=== PATIENT | female | born 1995 | race Caucasian/White ===

== ENCOUNTER 2019-04-05 23:50 | Outpatient (CLI) | payer MEDICAID | END 2019-04-06 09:20 | disposition home or self-care (01) | LOC: D.LDO 23:50 → D.LD 23:50 → D.LDO 04-06 09:20 | PROVIDERS: ATTEND Obstetrics & Gynecology | DX: O26.893 Other specified pregnancy related conditions, third trimester (principal); M06.9 Rheumatoid arthritis, unspecified; Z3A.29 29 weeks gestation of pregnancy ==

== ENCOUNTER → 2019-04-21 08:41 | Outpatient (CLI) | payer MEDICAID ==
[2019-04-21 13:59] LABS: APPEARANCE CLEAR (CLEAR); BILIRUBIN NEGATIVE (NEGATIVE); COLOR YELLOW (YELLOW); GLUCOSE NEGATIVE (NEGATIVE); KETONE NEGATIVE (NEGATIVE); NITRITE NEGATIVE (NEGATIVE); PROTEIN TRACE mg/dL (NEGATIVE); SPECIFIC GRAVITY 1.005 (1.005-1.020); UROBILINOGEN NORMAL (NORMAL)
[2019-04-21 14:00] LABS: BACTERIA FEW /hpf (NEGATIVE); EPITHELIAL CELLS 0-5 /hpf (0-5)
== END | disposition home or self-care (01) ==
LOC: D.LDO 08:41
PROVIDERS: Student in an Organized Health Care Education/Training Program; ATTEND Obstetrics & Gynecology
DX: O35.9XX0 Maternal care for (suspected) fetal abnormality and damage, unspecified, not applicable or unspecified (principal)

== ENCOUNTER 2019-05-23 17:15 | Outpatient (CLI) | payer MEDICAID | END 2019-05-23 18:05 | disposition home or self-care (01) | LOC: D.LDO 17:15 | PROVIDERS: ATTEND Student in an Organized Health Care Education/Training Program | DX: O24.419 Gestational diabetes mellitus in pregnancy, unspecified control (principal); Z3A.36 36 weeks gestation of pregnancy ==

== ENCOUNTER 2019-05-24 17:14 | Inpatient (IN) | payer MEDICAID ==
[~2019-05-24] VITALS: Ht 165.1 cm; Wt 79.1 kg
[2019-05-24 18:54] LABS: NITRITE NEGATIVE (NEGATIVE)
[2019-05-24 18:55] LABS: BILIRUBIN NEGATIVE (NEGATIVE); GLUCOSE NEGATIVE (NEGATIVE); KETONE NEGATIVE (NEGATIVE); UROBILINOGEN NORMAL (NORMAL)
[2019-05-24 19:00] LABS: UDS - AMPHET NEGATIVE QUAL (NEGATIVE); UDS - BARB NEGATIVE QUAL (NEGATIVE); UDS - BENZO NEGATIVE QUAL (NEGATIVE); UDS - COCAINE NEGATIVE QUAL (NEGATIVE); UDS - OPIATE NEGATIVE QUAL (NEGATIVE); UDS - PCP NEGATIVE QUAL (NEGATIVE); UDS - THC NEGATIVE QUAL (NEGATIVE)
[2019-05-24 19:06] LABS: RED CELLS - URINE OCC /hpf (0-5); WHITE CELLS - URINE 0-5 /hpf (NEGATIVE)
[2019-05-24 19:09] LABS: EPITHELIAL CELLS OCC /hpf (0-5)
[2019-05-24 20:51] LABS: HEMATOCRIT 32.9 % (36.0-48.0); MCH 25.7 pg (26.0-34.0); MCHC 33.4 g/dL (31.0-37.0); MCV 76.9 fL (80.0-100.0); RBC 4.28 10x6/uL (4.00-5.40); RDW 14.6 % (11.5-14.5); WBC 10.7 10x3/uL (4.8-10.8)
[2019-05-24 21:11] LABS: CALC OSMOLALITY 270 mosm/kg (275-300); CARBON DIOXIDE 20.8 mmol/L (21.0-32.0); CHLORIDE - SERUM 106 mmol/L (98-107); CREATININE - SERUM 0.8 mg/dL (0.6-1.3); GLUCOSE 88 mg/dL (74-106); SODIUM 137 mmol/L (136-145); UREA NITROGEN 7 mg/dL (7-18); eGFR NON AFRICAN AMERICAN > 90 mL/min (90-120)
[2019-05-24 21:17] LABS: ALBUMIN 2.3 g/dL (3.4-5.0); ALKALINE PHOSPHATASE 248 U/L (30-120); ALT (SGPT) 24 U/L (10-68); BILIRUBIN - DIRECT 0.09 mg/dL (0.00-0.30); BILIRUBIN - TOTAL 0.39 mg/dL (0.2-1.3); PROTEIN - SERUM 6.1 g/dL (6.4-8.2); URIC ACID 4.4 mg/dL (2.6-7.2)
--- NOTE | 2019-05-24 23:39 | NUR ---
BABY GIRL @ [address] @ 2332
[2019-05-25] VITALS (7 sets, daily range): BP systolic 111–140; BP diastolic 61–87; Ht 165.1 cm; Wt 79.1 kg
--- NOTE | 2019-05-25 00:27 | NUR ---
X-RAY PERFORMED & CLEARED OF RETAINED OBJECTS PER DR DENSON EMERGENCY CODE RED/ LAP SPONGES WERE CORRECT & COUNTED
--- NOTE | 2019-05-25 00:35 | NUR ---
PT REC'D FROM RECOVERY VIA BED. DENIES PAIN AT THIS TIME. LUNGS CLEAR. BS+. DRESSING TO ABDOMEN CDI. FUNDUS FIRM AT U/1. MODERATE LOCHIA WITH SOME CLOTS NOTED. GREGG CATH PATENT WITH YELLOW URINE NOTED. SCD IN PLACE AND FUNCTIONAL. NO DISTRESS NOTED. Mikaela HUNTER RN
--- NOTE | 2019-05-25 01:30 | NUR ---
PT RESTING. 150 ML OF YELLOW URINE NOTED. L ELSA, RN
--- NOTE | 2019-05-25 02:20 | NUR ---
PT COMFORTABLE AT THIS TIME. 100 ML NOTED TO MARYSOL. Mikaela HUNTER RN
--- NOTE | 2019-05-25 04:00 | NUR ---
PT AWAKE AT THIS TIME. STATES PAIN IS A 6-7. BOLUS OFFERED BUT PT REFUSED AT THIS TIME. WILL CONTINUE TO MONITOR. Mikaela HUNTER RN
--- NOTE | 2019-05-25 06:30 | NUR ---
pericare provided and ice pack replaced at this time. feng anthony rn
--- NOTE | 2019-05-25 07:27 | NUR ---
RECEIVED PT LYING SUPINE IN BED. REPOSITIONS MORE UP IN BED. PT DROWSY, BUT AAO X 3. VSS. HRRR WITHOUT AUDIBLE MURMUR. BBS CLEAR. BS HYPOACTIVE. ABDOMEN SOFT/NON-DISTENDED. FUNDUS FIRM AT U/1. RUBRA LOCHIA SCANT AMT. ABDOMINAL DRESSING DRY WITHOUT DRAINAGE NOTED. NEG HOMANS' SIGN. PPP. NO EDEMA NOTED TO BLE. SCDS ON BLE. PUMP ON. PIV SITE CLEAR TO LEFT HAND. NS WITH PITOCIN INFUSING AT 125 ML/HR. DILAUDID DRAPERY AND UPHOLSTERY MEASURER INFUSING ORDERED. PT STATES INCISIONAL PAIN OF "5" ON 0-10 PAIN SCALE. STATES PAIN MED RELIEVING PAIN. GREGG TO GRAVITY DRAINING CLEAR, YELLOW URINE. FRESH ICE PACK TO INCISION. PT PROVIDED SPLINT PILLOW AND INSTRUCTED ON TCDB AND INCENTIVE SPIROMETER. PT VERBALIZES UNDERSTANDING. SR UP X 2. CALL LIGHT IN REACH. CLEAR LIQUID DIET SERVED. PT DENIES NAUSEA.
[2019-05-25 07:48] LABS: BASOPHILS 0.1 % (0-2); EOSINOPHILS 0.3 % (0-7); HEMATOCRIT 27.2 % (36.0-48.0); IMMATURE GRANULOCYTES 0.3 % (0-5); LYMPHOCYTES 12.5 % (15-50); MCH 25.2 pg (26.0-34.0); MCHC 33.1 g/dL (31.0-37.0); MCV 76.2 fL (80.0-100.0); MEAN PLATELET VOLUME 10.5 fL (7.4-10.4); MONOCYTES 7.3 % (2-11); NEUTROPHILS 79.5 % (40-80); PLATELET COUNT 148 10x3/uL (130-400); RBC 3.57 10x6/uL (4.00-5.40); RDW 14.5 % (11.5-14.5); WBC 12.1 10x3/uL (4.8-10.8)
--- NOTE | 2019-05-25 08:00 | NUR ---
RECEIVED PT LYING SUPINE IN BED. HOLDING WITH MUCH WARMTH SHOWN. INFANT TO FOB. PT VSS. HRRR WITHOUT AUDIBLE MURMUR. BBS CLEAR. BS X 4. ABDOMEN SOFT/NON-DISTENDED. FUNDUS FIRM AT U/1. RUBRA LOCHIA SMALL AMT. NO CLOTS OR HEAVY BLEEDING PER PT STATES. PT INSTRUCTED TO NOTIFY NURSE OF PASSING CLOTS OR SOAKING PAD IN ONE HOUR. PT VERBALIZES UNDERSTANDING. PERINEUM WITHOUT EDEMA. NEG HOMANS' SIGN. PPP. NO EDEMA NOTED TO BLE. SL TO RIGHT FOREARM CLEAR. PT C/O BACK PAIN AND CRAMPING OF "7" ON 0-10 PAIN SCALE. PT OOB AND AMB TO BR TO VOID AT THIS TIME. FOB IN ROOM WITH PT.
--- NOTE | 2019-05-25 08:20 | NUR ---
DR DENSON VISITS WITH PT.
--- NOTE | 2019-05-25 08:33 | NUR ---
SL CONVERTED TO SALINE LOCK. FLUSHES EASILY WITH 10 ML NS. SITE CLEAR. GREGG DC'D WITH 125 ML OF DARK, YELLOW URINE NOTED IN BAG. PT CANELO WELL.
--- NOTE | 2019-05-25 08:41 | NUR ---
PT C/O INCISIONAL PAIN OF "4" ON 0-10 PAIN SCALE. NORCO 10/325 GIVEN PO ORDERED. PT INSTRUCTED ON MED. VERBALIZES UNDERSTANDING.
--- NOTE | 2019-05-25 09:20 | NUR ---
PT SITTING UP IN BED. CONSUMING BREAKFAST. DENIES C/O OR NEEDS.
--- NOTE | 2019-05-25 10:20 | NUR ---
PT OOB AND AMB TO BR. VOIDS 150 ML OF BLOOD-TINGED URINE. PERICARE DONE PER PT. PANTIES AND PAD ON. PT TRANSFERED VIA WHEELCHAIR TO ROOM 1222. PT TO BED. ORIENTED TO ROOM, BED, AND CALL LIGHT. SR UP X2. CALL LIGHT IN REACH. THIS NURSE CONTINUING CARE.
--- NOTE | 2019-05-25 10:36 | NUR ---
FRESH ICE PACK AND ICE WATER PROVIDED TO PT.
--- NOTE | 2019-05-25 11:10 | NUR ---
PT SITTING UP IN BED. HOLDS WITH MUCH WARMTH SHOWN. VSS. ABDOMINAL INCISION OPEN TO AIR. PT STATES DR DENSON REMOVED DRESSING THIS AM. INCISION WITHOUT REDNESS, SWELLING OR DRAINAGE NOTED. PT DENIES NEEDS OR C/O. STATES "I'M GOING TO TRY TO BREASTFEED IN A FEW MINUTES".
--- NOTE | 2019-05-25 13:07 | NUR ---
PT C/O INCISIONAL PAIN OF "7" ON 0-10 PAIN SCALE. MOTRIN 600 MG AND NORCO 10/325 GIVEN PO ORDERED. PT INSTRUCTED ON MEDS. VERBALIZES UNDERSTANDING.
--- NOTE | 2019-05-25 14:00 | NUR ---
PT SITTING UP IN BED. STATES PAIN CONTINUES AT "7" ON 0-10 PAIN SCALE. STATES NOT PASSING GAS. PT ENCOURAGED TO AMBULATE IN HALLS. PT OOB AND AMB IN HALLS WITH SO AT THIS TIME.
--- NOTE | 2019-05-25 15:30 | NUR ---
PT SITTING UP IN BED. VISITS WITH FAMILY. DENIES C/O OR NEEDS.
--- NOTE | 2019-05-25 17:25 | NUR ---
VSS. FUNDUS FIRM AT U/U. RUBRA LOCHIA SMALL AMT. NO CLOTS OR HEAVY BLEEDING PER PT STATES. 300 ML OF BLOOD-TINGED URINE NOTED IN SPECIPAN. PT DENIES NEEDS OR C/O PAIN AT THIS TIME.
--- NOTE | 2019-05-25 19:30 | NUR ---
REPORT GIVEN BY SUBHA NOBLES
--- NOTE | 2019-05-25 20:00 | NUR ---
PT DOING WELL. UP AB BREEZY IN ROOM. HEART SOUNDS WNL, LUNGS CLEAR. BOWEL SOUNDS HEARD. INCISION HAS NO DRESSING. IT IS CLEAN AND DRY WITH NO DRAINAGE. PT DOES NOT C/O PAIN.SALINE LOCK IN PLACE LEFT WRIST. SKIN IS WARM AND DRY.
--- NOTE | 2019-05-25 22:00 | NUR ---
PT DOING WELL. NO C/O. WATCHING TV
[2019-05-26] VITALS: BP 118/55
--- NOTE | 2019-05-26 | NUR ---
VS TAKEN. NO C/O RESTING QUIETLY IN ROOM. ENCOURAGED PT TO REST WHILE THE BABY IS SLEEPING
--- NOTE | 2019-05-26 02:00 | NUR ---
PT RESTING QUIETLY. NO C/O.
[2019-05-26 04:00] VITALS: BP 118/55
--- NOTE | 2019-05-26 04:00 | NUR ---
VS TAKEN. RESTINGN QUIETLY. NO C/O
--- NOTE | 2019-05-26 06:00 | NUR ---
PT RESTING QUIETLY IN ROOM NO C/O
[2019-05-26 06:35] LABS: BASOPHILS 0.1 % (0-2); EOSINOPHILS 0.3 % (0-7); HEMATOCRIT 27.9 % (36.0-48.0); HEMOGLOBIN 9.2 g/dL (12-16); IMMATURE GRANULOCYTES 0.2 % (0-5); LYMPHOCYTES 10.7 % (15-50); MCH 25.4 pg (26.0-34.0); MCV 77.1 fL (80.0-100.0); MEAN PLATELET VOLUME 10.7 fL (7.4-10.4); MONOCYTES 4.7 % (2-11); RBC 3.62 10x6/uL (4.00-5.40); RDW 14.7 % (11.5-14.5); WBC 13.2 10x3/uL (4.8-10.8)
[2019-05-26 06:37] LABS: PLATELET COUNT 184 10x3/uL (130-400)
--- NOTE | 2019-05-26 08:00 | NUR ---
TO PT'S ROOM, PT IS RESTING IN BED, WITH EYES CLOSED, RESP EVEN AND UL AT 16/MIN, PT NOT DISTURBED AT THIS TIME. SRUP X2, CALL LIGHT AND PHONE WITHIN REACH.
--- NOTE | 2019-05-26 08:25 | NUR ---
PT CALLS NURSE TO ROOM, PT IS STANDING AT BEDSIDE, STATES "CAN YOU HELP ME SWADDLE THE BABY". INFANT SWADDLED X 2, NO DISTRESS NOTED. PLACED IN CRIB. PT DENIES ALL NEEDS AT THIS TIME. LARGE GLASS OF ICE WATER SERVED. PT DENIES HEAVY BLEEDING OR PASSING CLOTS. WILL RETURN FOR AM ASSESSMENT. SRUP X2, CALL LIGHT AND PHONE WITHIN REACH.
--- NOTE | 2019-05-26 12:30 | NUR ---
ASSESSMENT COMPLETED. SEE FLOWSHEET.
[2019-05-26] MEDS ORDERED: IBUPROFEN600 MG PO (12:33)
[2019-05-26] MEDS ORDERED: HYDROCODON-ACE1 EA10 PO (12:33)
[2019-05-26 12:51] VITALS: BP 134/77
--- NOTE | 2019-05-26 18:30 | NUR ---
PT AMBULATORY OFF UNIT IN STABLE CONDITION, ASSISTED PT WITH CARRYING ITEMS OUT TO CAR.
[2019-05-28 07:12] LABS: RAPID PLASMA REAGIN Non Reactive (Non Reactive)
== END 2019-05-26 18:30 | disposition home or self-care (01) | DRG 788 ==
LOC: D.LDO 17:14 → D.LD 20:22 → D.WS 05-25 10:20
PROVIDERS: ADMIT Obstetrics & Gynecology; ATTEND Obstetrics & Gynecology
PROC: 10D00Z1 Extraction of Products of Conception, Low, Open Approach (ICD-10-PCS; principal; 2019-05-24 23:13)
DX: O76 Abnormality in fetal heart rate and rhythm complicating labor and delivery (principal); O14.04 Mild to moderate pre-eclampsia, complicating childbirth; Z3A.36 36 weeks gestation of pregnancy; Z37.0 Single live birth; O24.429 Gestational diabetes mellitus in childbirth, unspecified control; Z87.891 Personal history of nicotine dependence

== ENCOUNTER 2019-05-30 04:08 | Emergency (ER) | payer MEDICAID ==
[~2019-05-30] VITALS: Ht 165.1 cm; Wt 78.9 kg
[~2019-05-30 04:08] MED LIST: HYDROCODON-ACE1 EA10 PO; IBUPROFEN600 MG PO
[2019-05-30 04:11] VITALS: Ht 165.1 cm; Wt 78.9 kg
[2019-05-30 04:56] LABS: BASOPHILS 0.2 % (0-2); EOSINOPHILS 1.9 % (0-7); HEMATOCRIT 27.5 % (36.0-48.0); IMMATURE GRANULOCYTES 0.5 % (0-5); MCH 25.1 pg (26.0-34.0); MCHC 32.7 g/dL (31.0-37.0); MCV 76.8 fL (80.0-100.0); MEAN PLATELET VOLUME 9.1 fL (7.4-10.4); MONOCYTES 10.7 % (2-11); NEUTROPHILS 67.7 % (40-80); RBC 3.58 10x6/uL (4.00-5.40); RDW 14.7 % (11.5-14.5); WBC 10.5 10x3/uL (4.8-10.8)
[2019-05-30 05:02] LABS: BILIRUBIN NEGATIVE (NEGATIVE); GLUCOSE NEGATIVE (NEGATIVE); KETONE NEGATIVE (NEGATIVE); NITRITE NEGATIVE (NEGATIVE); SPECIFIC GRAVITY 1.015 (1.005-1.020); UROBILINOGEN NORMAL (NORMAL)
[2019-05-30 05:06] LABS: PLATELET COUNT 392 10x3/uL (130-400)
[2019-05-30 05:07] LABS: CALC OSMOLALITY 276 mosm/kg (275-300); CALCIUM 9.2 mg/dL (8.5-10.1); CARBON DIOXIDE 24.2 mmol/L (21.0-32.0); CHLORIDE - SERUM 106 mmol/L (98-107); CREATININE - SERUM 0.8 mg/dL (0.6-1.3); GLUCOSE 99 mg/dL (74-106); POTASSIUM - SERUM 3.9 mmol/L (3.5-5.1); SODIUM 139 mmol/L (136-145); UREA NITROGEN 11 mg/dL (7-18); eGFR NON AFRICAN AMERICAN > 90 mL/min (90-120)
[2019-05-30 05:19] LABS: ALBUMIN 2.1 g/dL (3.4-5.0); ALKALINE PHOSPHATASE 131 U/L (30-120); ALT (SGPT) 19 U/L (10-68); BILIRUBIN - TOTAL 0.35 mg/dL (0.2-1.3); PRO BNP 553 pg/mL (0-125); PROTEIN - SERUM 6.5 g/dL (6.4-8.2)
[2019-05-30 10:04] VITALS: BP 129/76
== END 2019-05-30 09:08 | disposition home or self-care (01) ==
LOC: D.ER 04:08
PROVIDERS: Family Medicine
DX: O90.89 Other complications of the puerperium, not elsewhere classified (principal); R60.9 Edema, unspecified; J45.909 Unspecified asthma, uncomplicated; E11.9 Type 2 diabetes mellitus without complications

== ENCOUNTER 2019-06-19 23:32 | Emergency (ER) | payer MEDICAID ==
[~2019-06-19] VITALS: Ht 165.1 cm; Wt 65.9 kg
[2019-06-19 23:44] VITALS: Ht 165.1 cm; Wt 65.9 kg
[2019-06-20] MEDS ORDERED: STERAPRED DS 1210 MG PO (00:06)
[2019-06-20] MEDS ORDERED: HYDROCODON-ACE1 EA10 PO (00:06)
[2019-06-20 00:33] VITALS: BP 115/72
== END 2019-06-20 00:57 | disposition home or self-care (01) ==
LOC: D.ER 23:32
DX: M06.80 Other specified rheumatoid arthritis, unspecified site (principal)

== ENCOUNTER 2019-09-05 13:32 | Emergency (ER) | payer MEDICAID ==
[~2019-09-05] VITALS: Ht 165.1 cm; Wt 59.1 kg
[~2019-09-05 13:32] MED LIST changes: +STERAPRED DS 1210 MG PO
[2019-09-05 13:53] VITALS: Ht 165.1 cm; Wt 59.1 kg
[2019-09-05] MEDS ORDERED: ZOVIRAX800 MG PO (14:34)
[2019-09-05] MEDS ORDERED: STERAPRED DS 1210 MG PO (14:34)
[2019-09-05] MEDS ORDERED: HYDROCODON-ACE1 EA10 PO (14:34)
[2019-09-05] MEDS ORDERED: FLAGYL500 MG PO (14:36)
[2019-09-05 14:58] LABS: BILIRUBIN NEGATIVE (NEGATIVE); GLUCOSE NEGATIVE (NEGATIVE); KETONE SMALL mg/dL (NEGATIVE); NITRITE NEGATIVE (NEGATIVE); SPECIFIC GRAVITY 1.015 (1.005-1.020)
[2019-09-05 15:11] VITALS: BP 132/80
== END 2019-09-05 15:12 | disposition home or self-care (01) ==
LOC: D.ER 13:32
PROVIDERS: Family Medicine
DX: M06.9 Rheumatoid arthritis, unspecified (principal); N76.0 Acute vaginitis; R23.8 Other skin changes; M25.50 Pain in unspecified joint; J45.909 Unspecified asthma, uncomplicated

== ENCOUNTER → 2019-12-28 10:52 | Outpatient (CLI) | payer OTHER ==
[2019-09-05 13:53] VITALS: BMI 21.6
[~2019-12-28 10:52] MED LIST changes: +FLAGYL500 MG PO; +ZOVIRAX800 MG PO
== END | disposition home or self-care (01) ==
LOC: D.RAD 10:52
PROVIDERS: ATTEND Pediatrics
DX: Z02.71 Encounter for disability determination (principal)

== ENCOUNTER 2020-06-03 09:49 | Emergency (ER) | payer MEDICAID ==
[~2020-06-03] VITALS: Ht 165.1 cm; Wt 65.9 kg
[~2020-06-03 09:49] MED LIST changes: +KEFLEX500 MG PO; +REGLAN10 MG PO; +ZOLOFT50 MG PO
[2020-06-03 09:51] VITALS: Ht 165.1 cm; Wt 65.9 kg
[2020-06-03 10:34] LABS: BASOPHILS 0.1 % (0-2); EOSINOPHILS 0.8 % (0-7); HEMATOCRIT 26.9 % (36.0-48.0); HEMOGLOBIN 8.7 g/dL (12-16); IMMATURE GRANULOCYTES 0.2 % (0-5); LYMPHOCYTE ABS# 1.45 10x3/uL (1.18-3.74); LYMPHOCYTES 16.2 % (15-50); MCH 23.2 pg (26.0-34.0); MCHC 32.3 g/dL (31.0-37.0); MCV 71.7 fL (80.0-100.0); MEAN PLATELET VOLUME 8.4 fL (7.4-10.4); MONOCYTES 5.7 % (2-11); NEUTROPHIL ABS# 6.89 10x3/uL (1.56-6.13); RBC 3.75 10x6/uL (4.00-5.40); RDW 15.1 % (11.5-14.5)
[2020-06-03 10:37] LABS: PLATELET COUNT 367 10x3/uL (130-400)
[2020-06-03 10:42] LABS: BILIRUBIN NEGATIVE (NEGATIVE); KETONE NEGATIVE (NEGATIVE); NITRITE NEGATIVE (NEGATIVE); UROBILINOGEN NORMAL mg/dL (< 2)
[2020-06-03 10:44] LABS: BACTERIA FEW HPF (NONE SEEN); SQUAMOUS EPITHELIAL 0-5 HPF (0-4); WHITE CELLS - URINE 0-5 HPF (0-4)
[2020-06-03 10:50] LABS: CALC OSMOLALITY 257 mosm/kg (275-300); CALCIUM 9.2 mg/dL (8.5-10.1); CARBON DIOXIDE 23.7 mmol/L (21.0-32.0); CHLORIDE - SERUM 98 mmol/L (98-107); CREATININE - SERUM 0.6 mg/dL (0.6-1.3); GLUCOSE 80 mg/dL (74-106); POTASSIUM - SERUM 3.7 mmol/L (3.5-5.1); SODIUM 130 mmol/L (136-145); UREA NITROGEN 8 mg/dL (7-18); eGFR NON AFRICAN AMERICAN > 90 mL/min (90-120)
[2020-06-03 11:18] LABS: ALBUMIN 2.4 g/dL (3.4-5.0); ALKALINE PHOSPHATASE 71 U/L (30-120); ALT (SGPT) 14 U/L (10-68); BILIRUBIN - TOTAL 0.27 mg/dL (0.2-1.3); HCG - QUANTITATIVE (MATERNAL) 16330 mIU/mL; PROTEIN - SERUM 7.3 g/dL (6.4-8.2)
[2020-06-03] MEDS ORDERED: CEPHALEXIN500 M1 PO (13:00)
[2020-06-03] MEDS ORDERED: MACROBID100 MG PO (13:00)
[2020-06-03 13:55] VITALS: BP 125/74
== END 2020-06-03 14:12 | disposition home or self-care (01) ==
LOC: D.ER 09:49
PROVIDERS: Family Medicine
DX: O26.892 Other specified pregnancy related conditions, second trimester (principal); Z3A.23 23 weeks gestation of pregnancy; M25.50 Pain in unspecified joint; J45.909 Unspecified asthma, uncomplicated; R10.30 Lower abdominal pain, unspecified

== ENCOUNTER 2020-08-03 13:48 | Outpatient (CLI) | payer MEDICAID ==
[2020-06-03 09:51] VITALS: BMI 24.1
[~2020-08-03 13:48] MED LIST changes: +CEPHALEXIN500 M1 PO; +MACROBID100 MG PO
[2020-08-03 16:58] LABS: BILIRUBIN NEGATIVE (NEGATIVE); KETONE MODERATE mg/dL (NEGATIVE); NITRITE NEGATIVE (NEGATIVE); UROBILINOGEN NORMAL mg/dL (< 2)
[2020-08-03 16:59] LABS: WHITE CELLS - URINE 0-5 HPF (0-4)
[2020-08-03 17:00] LABS: BACTERIA MANY HPF (NONE SEEN)
== END 2020-08-03 22:29 | disposition other institution (70) ==
LOC: D.LDO 13:48
PROVIDERS: ATTEND Student in an Organized Health Care Education/Training Program
DX: O43.899 Other placental disorders, unspecified trimester (principal)

== ENCOUNTER → 2020-08-03 13:48 | Outpatient (CLI) | payer MEDICAID ==
[2020-06-03 09:51] VITALS: BMI 24.1
== END | disposition short-term general hospital (02) ==
LOC: D.LDO 13:48
PROVIDERS: ATTEND Obstetrics & Gynecology
DX: O60.03 Preterm labor without delivery, third trimester (principal); Z3A.32 32 weeks gestation of pregnancy